=== PATIENT | female | born 1960 | race Caucasian/White ===

== ENCOUNTER 2020-08-20 14:10 | Outpatient (CLI) | payer BC, SELFPAY ==
--- NOTE | ~2020-08-20 | MM_ITS ---
EXAMINATION: MM screening dilcia BI w eusebia HISTORY: Screening TECHNIQUE: Craniocaudal and mediolateral oblique 3-D tomosynthesis images were obtained and synthetic 2-D images were generated. CAD analysis was submitted and interpreted. COMPARISON: Comparison to multiple prior studies sequentially, with oldest reviewed study dated . BREAST PARENCHYMAL COMPOSITION: There are scattered areas of fibroglandular density. FINDINGS: There is no evidence of suspicious mass, calcification, or architectural distortion to sugg est malignancy in either breast. There has been no suspicious interval change. IMPRESSION: 1. No mammographic evidence of malignancy. 2. Recommend routine screening mammography in one year. BI-RADS Category 1: Negative Reviewed, dictated and finalized at location A.
== END 2020-08-20 14:11 | disposition home or self-care (01) ==
PROVIDERS: PCP Family Medicine; Visit Provider Obstetrics & Gynecology Gynecology
DX: Z12.31 Encounter for screening mammogram for malignant neoplasm of breast (principal)
CPT/HCPCS: 77063; 77067

== ENCOUNTER 2022-02-17 15:15 | Outpatient (CLI) | payer BC, SELFPAY ==
--- NOTE | ~2022-02-17 | DEXA_ITS ---
Bone Density Report Name: SHASTA STALLWORTH Age: 61 Sex: Female Ethnicity: White Date of : 1960 Indication: postmenopausal; screening for osteoporosis; height loss; Referring Provider: YIMI, LAKSHMI Study: Bone densitometry was performed. Exam Date: February 17, 2022 Accession number: [id number] Bone Density: Region BMD T-score Z-score Classification AP Spine(L1-L4) 1.007 -0.4 1.0 Normal Femoral Neck (Left) 0.807 -0.4 0.9 Normal Total Hip (Left) 1.006 0.5 1.5 Normal Femoral Neck (Right) 0.726 -1.1 0.2 Osteopenia Total Hip (Right) 0.921 -0.2 0.8 Normal Total Hip Mean 0.963 0.2 1.2 Normal World Health Organization criteria for BMD impression classify patients as: Normal (T-score at or above -1.0), Osteopenia (T-score between -1.0 and -2.5), or Osteoporosis (T-score at or below -2.5). 10-year Fracture Risk(1): Major Osteoporotic Fracture 5.7% Hip Fracture 0.3% Reported Risk Factors: [place] (), Neck BMD=0.726, BMI=52.9 Input outside FRAX(R) limits. Adjusted to:Vumpax=460 kg (1) FRAX(R) Version 3.08. Fracture probability calculated for an untreated patient. Fracture probability may be lower if the patient has received treatment. Clinical Information Provided by Patient: Patient maximum height was 62 Menopause Age: 52 Drinks caffeinated beverages Onset of menses at age 14 Number of children 3 Impression: The patient has low bone mass, based on the Right Femoral Neck T-score. The patient has an estimated ten-year risk of hip fracture of 0.3% and an estimated ten-year risk of major fracture of 5.7%, based on the WHO FRAX algorithm. Discussion: BONE DENSITY IS LOW AT ONE OR MORE SKELETAL SITES. This patient's lowest T-score is low at one or more skeletal sites. It meets the World Health Organization's (WHO) criteria for ?low bone mass? (T-score between -1.0 and -2.5). The patient's 10-year risk of fracture as calculated by FRAX is less than the threshold where pharmacological therapy is recommended by the National Osteoporosis Foundation (NOF). However, all treatment decisions require clinical judgment and consideration of individual patient factors, including patient preferences, comorbidities, previous drug use, risk factors not captured in the FRAX model (e.g., frailty, falls, vitamin D deficiency, increased bone turnover, interval significant decline in bone density) and possible under or overestimation of fracture risk by FRAX. The patient should follow a healthful lifestyle (good nutrition with adequate calcium and vitamin D, and appropriate weight-bearing exercise). Follow-Up: Consider repeating this study in 2 to 3 years to reassess this patient's status, or sooner if there is some new clinical indication. Reported by: ELIANA on 02/17
== END 2022-02-17 15:16 | disposition home or self-care (01) ==
LOC: ANHIMG 15:17
PROVIDERS: PCP Family Medicine; Visit Provider Nurse Practitioner
DX: Z13.820 Encounter for screening for osteoporosis (principal); M85.851 Other specified disorders of bone density and structure, right thigh
CPT/HCPCS: 77080

== ENCOUNTER 2022-05-17 13:37 | Outpatient (CLI) | payer BC, SELFPAY ==
--- NOTE | ~2022-05-17 | MM_ITS ---
EXAMINATION: MM screening dilcia BI w eusebia HISTORY: Screening TECHNIQUE: Craniocaudal and mediolateral oblique 3-D tomosynthesis images were obtained and synthetic 2-D images were generated. CAD analysis was submitted and interpreted. COMPARISON: Comparison to multiple prior studies sequentially, with oldest reviewed study dated 12/2012. BREAST PARENCHYMAL COMPOSITION: There are scattered areas of fibroglandular density. FINDINGS: There is no evidence of suspicious mass, calcification, or architectural distortion to sugg est malignancy in either breast. There has been no suspicious interval change. IMPRESSION: 1. No mammographic evidence of malignancy. 2. Recommend routine screening mammography in one year. BI-RADS Category 1: Negative Reviewed, dictated and finalized at location A. GER REVIEW
== END 2022-05-17 13:38 | disposition home or self-care (01) ==
LOC: ANHIMG 13:38
PROVIDERS: PCP Physician Assistant; Visit Provider Obstetrics & Gynecology Gynecology
DX: Z12.31 Encounter for screening mammogram for malignant neoplasm of breast (principal)
CPT/HCPCS: 77063; 77067

== ENCOUNTER 2023-03-14 11:40 | Emergency (ER) | payer BC, SELFPAY ==
[2023-03-14 11:54] VITALS: BP 143/79; PULSE 102; RESP 20; TEMP 36.5; O2SAT 99
[2023-03-14 11:59] LABS: Glucose Point of Care 296 mg/dl (65-105)
[2023-03-14 13:55] LABS: Basophils Absolute Auto 0.1 K/mm3 (0.0-0.1); Basophils Percent Auto 0.6 % (0.2-1.2); Eosinophils Absolute Auto 0.2 K/mm3 (0-0.3); Hematocrit 44.1 % (37.0-47.0); Hemoglobin 15.3 g/dL (12.0-15.0); Immature Granulocyte Absolute 0.05 K/mm3 (0.00-0.031); Immature Granulocyte Percent A 0.6 % (0-0.5); Lymphocytes Absolute Auto 2.66 K/mm3 (0.9-3.2); Lymphocytes Percent Auto 33.1 % (18.3-44.2); Mean Corpuscular HGB Conc 34.7 g/dl (32-36); Mean Corpuscular Hemoglobin 30.1 pg (26-34); Mean Corpuscular Volume 86.6 fl (80-100); Mean Platelet Volume 9.7 fl (7.4-10.4); Monocytes Absolute Auto 0.7 K/mm3 (0.1-0.6); Monocytes Percent Auto 8.7 % (2.6-8.5); Neutrophils Absolute Auto 4.4 K/mm3 (1.3-6.7); Platelet Count Result 210 k/mm3 (150-375); Red Blood Count 5.09 M/mm3 (4.2-5.4); Red Cell Distribution Width 12.5 % (11.5-14.5)
[2023-03-14 14:05] LABS: Alanine Aminotransferase 45 U/L (6-35); Albumin Level 4.4 g/dL (3.5-5.1); Alkaline Phosphatase 105 U/L (38-126); Anion Gap 15 mmol/L (8-16); Aspartate Amino Transferase 52 U/L (14-36); Bilirubin,Total 0.6 mg/dL (0.2-1.3); Blood Urea Nitrogen 11 mg/dL (7-17); Calcium 9.4 mg/dL (8.4-10.2); Carbon Dioxide 21 mmol/L (22-30); Chloride 98 mmol/L (98-107); Estimated CRCL calculation 157 ml/min; Estimated Glomerular Filt Rate > 60; Glucose 227 mg/dL (65-110); Potassium 3.9 mmol/L (3.4-5.0); Sodium 134 mmol/L (137-145)
[2023-03-14] MEDS: SODIUM CHLORIDE 0.9% IV 1,000 ML 999 ML IV CONT (14:09)
--- NOTE | 2023-03-14 15:11 | ED.GENADULT ---
HPI - General Adult General Chief complaint: Recheck/Abnormal Lab/Rx Stated complaint: high blood glucose 325 Time Seen by Provider: 03/14/23 13:19 History of Present Illness HPI narrative: 62-year-old female presenting to the emergency department for evaluation of hyperglycemia. Patient reports she is diabetic and is on Ozempic and Metformin. patient states that her blood sugars have been running high for the past few days. Patient contacted her primary care physician and she was referred to the emergency department. Patient denies any associated nausea vomiting diarrhea. Patient denies any chest pain or shortness of breath Related Data Home Medications Medication Instructions Recorded Confirmed albuterol sulfate 90 mcg/actuation 1 inhalation inhalation Q4H 02/26/19 11/21/22 aerosol inhaler (Ventolin HFA) qhnyfkt-foabotfspwfve-sptxlabz 250 1 tablet PO Q4-6H PRN 02/26/19 11/21/22 mg-250 mg-65 mg tablet (Excedrin Migraine) azelastine 137 mcg (0.1 %) nasal 137 mcg intranasal Q12H 02/26/19 11/21/22 spray aerosol hydrochlorothiazide 25 mg tablet 25 mg PO DAILY 02/26/19 11/21/22 levothyroxine 50 mcg tablet 50 mcg PO DAILY 02/26/19 11/21/22 meloxicam 15 mg tablet 15 mg PO DAILY 02/26/19 11/21/22 metoprolol tartrate 100 mg tablet 100 mg PO DAILY 02/26/19 11/21/22 omeprazole 40 mg capsule,delayed 40 mg PO DAILY 02/26/19 11/21/22 release polyethylene glycol 3350 17 17 gm PO DAILY 02/26/19 11/21/22 gram/dose oral powder (Miralax) progesterone micronized 100 mg 100 mg PO QAM 02/26/19 11/21/22 capsule insulin degludec 200 unit/mL (3 40 unit subcut DAILY 03/14/23 mL) subcutaneous pen (Tresiba FlexTouch U-200 insulin) Allergies Allergy/AdvReac Type Severity Reaction Status Date / Time fexofenadine Allergy Unknown n/a Verified 03/14/23 13:10 methylprednisolone Allergy Unknown n/a Verified 03/14/23 13:10 COCONUT Allergy Severe HIVES Uncoded 01/02/23 18:23 FEXOFENADINE HCL Allergy Severe LIP Uncoded 01/02/23 18:23 TINGLING AND SWELLING Review of Systems Review of Systems: All systems reviewed & are unremarkable except as noted in HPI and below PMFSH Past Medical History Medical History Allergic rhinitis Anxiety Asthma Decreased hearing of both ears Depression Diabetes mellitus type 2 in obese GERD without esophagitis Hyperlipidemia Hypertension Hypothyroidism Migraines Obesity LIZZ (obstructive sleep apnea) Reactive airway disease Reflex sympathetic dystrophy Vitamin D deficiency Surgical History Surgical History H/O Achilles tendon repair History of arthroscopy of right knee 2001 History of cervical biopsy cryosurgery 1991 History of cholecystectomy 1996 History of total right knee replacement (TKR) 11/2021 History of vein stripping left leg 07/20/2010 Family History Family History Mother Family history of malignant neoplasm Other Diabetes mellitus Family history of arthritis Family history of migraine headaches Hypertension Social History Social History Social History: Caffeine-Coffee Smoking status: Never smoker Alcohol intake: never Substance use: never Substance use type: does not use Lack of Transportation: No Lack of Food: Never True Current Housing: I Have Housing Concerned About Future Housing: No Difficulty Paying Gas/Electric Bills: No Difficulty Paying for Meds: No Currently Unemployed: No Education: Trade/Vocational Certificate Difficulty w/ Childcare or Family Care: No Living arrangements: alone Occupation/Education: occupation Gender identity (if verbalized by the patient): Female Sexual Orientation (if Verbalized by the Patient): Straight or Heterosexual Exam Narrative: LORI
[2023-03-14 16:13] LABS: Glucose Point of Care 160 mg/dl (65-105)
[2023-03-14 16:26] VITALS: BP 144/88; PULSE 84; RESP 16; O2SAT 98
== END 2023-03-14 16:27 | disposition home or self-care (01) ==
PROVIDERS: Emergency Provider Emergency Medicine; PCP Family Medicine
DX: E11.65 Type 2 diabetes mellitus with hyperglycemia (principal); E78.5 Hyperlipidemia, unspecified; E03.9 Hypothyroidism, unspecified; I10 Essential (primary) hypertension; Z79.84 Long term (current) use of oral hypoglycemic drugs
CPT/HCPCS: 36415; 80053; 82948; 85025; 96360; 99283; J7030

== ENCOUNTER 2024-01-14 07:26 | Outpatient (RCR) | payer BC, SELFPAY ==
[2023-12-13 13:00] VITALS: BMI 52.2
== END 2024-02-27 12:48 | disposition home or self-care (01) ==
LOC: ANHWOC 07:26
PROVIDERS: PCP Nurse Practitioner Family
DX: Z96.652 Presence of left artificial knee joint (principal); T14.8XXA Other injury of unspecified body region, initial encounter
CPT/HCPCS: 99212; 99213; 99214; A9270; G0463